=== PATIENT | female | born 1980 | race Hispanic/Latino ===

== ENCOUNTER 2023-10-12 01:28 | Emergency (ER) | payer BC ==
[2023-10-12] MEDS ORDERED: Ibuprofen 800 MG TAB ONE (01:46)
[2023-10-12 03:34] LABS: SARS-CoV-2 NAA Rapid Test Not Detected (NotDetected)
== END 2023-10-12 03:56 | disposition home or self-care (01) ==
LOC: ERS 01:28
DX: J02.0 Streptococcal pharyngitis (principal); Z20.822 Contact with and (suspected) exposure to COVID-19
CPT/HCPCS: 87430; 99283